=== PATIENT | female | born 1980 | race Caucasian/White ===

== ENCOUNTER → 2016-12-02 | Outpatient (CLI) | payer OTHER ==
[~2016-12-02] VITALS: Ht 165.1 cm; Wt 67.6 kg
[~2016-12-02] MED LIST: ALEVE220 MG PO; AMITRIPTYLINE H10 MG PO; DEPO ESTRADIO5 MG/ML IM; DEPO-PROVER150 MG/ML IM; IMITREX100 MG PO; MAXALT10 MG PO; MOTRIN IB200 MG PO; MOTRIN800 MG PO; NOHOMEMEDS; OMEPRAZOLE40 M1 PO; PAMELOR10 MG PO; PREDNISONE5 M1 PO; TUMS SMOOTHIES300 MG PO; ZYRTEC5 MG PO
== END | disposition home or self-care (01) ==
LOC: AMB 10:30
PROC: 0DB68ZX Excision of Stomach, Via Natural or Artificial Opening Endoscopic, Diagnostic (ICD-10-PCS; principal; 2016-12-02)
DX: K29.70 Gastritis, unspecified, without bleeding (principal); K21.9 Gastro-esophageal reflux disease without esophagitis; F17.200 Nicotine dependence, unspecified, uncomplicated
CPT/HCPCS: 88305; 88342 TC; J2250

== ENCOUNTER 2017-12-19 11:45 | Emergency (ER) | payer OTHER ==
[~2017-12-19] VITALS: Ht 165.1 cm; Wt 60.3 kg
[2017-12-19] MEDS ORDERED: MOTRIN800 MG PO (14:23)
[2017-12-19 14:42] VITALS: BP 121/67
== END 2017-12-19 14:42 | disposition home or self-care (01) ==
LOC: EME 11:45
DX: G57.31 Lesion of lateral popliteal nerve, right lower limb (principal); M71.21 Synovial cyst of popliteal space [Baker], right knee; F41.9 Anxiety disorder, unspecified; G43.909 Migraine, unspecified, not intractable, without status migrainosus; F17.200 Nicotine dependence, unspecified, uncomplicated; Z90.49 Acquired absence of other specified parts of digestive tract
CPT/HCPCS: 93971; 99281; 99284